=== PATIENT | male | born 1985 | race Hispanic/Latino ===

== ENCOUNTER → 2017-03-17 | Day surgery (SDC) | payer BC ==
[~2017-03-17] MED LIST: FENTANYL CITRATE/PF 100MCG/2 ML INJ ONE; LIDOCAINE HCL 2% LOCAL INJ 5 ML SDV VIAL INJ ONE; MIDAZOLAM HCL 2 MG/2 ML VIAL ONE; PROPOFOL IV EMULSION 10 MG/ML 50 ML VIAL ONE; SINGULAIR10 MG PO; XYZAL5 MG PO
--- NOTE | 2017-03-17 11:02 | Operative Report ---
DATE OF PROCEDURE: March 17, 2017 REFERRING PHYSICIAN: Dr. Osiris Rivera PROCEDURES PERFORMED 1. Esophagogastroduodenoscopy with biopsies. 2. Colonoscopy with biopsies. INDICATIONS FOR EGD: Heartburn, indigestion, nausea and vomiting. INDICATIONS FOR COLONOSCOPY: Lower abdominal pain. History of bright red blood per rectum. MEDICATION: Patient was done under MAC. Please see anesthesiologist's note. PROCEDURE: With the patient in the left lateral decubitus position, the flexible fiberoptic Olympus gastroscope was introduced into the esophagus under direct visualization without any difficulty. There was some patchy erythema noted in the distal esophagus. The scope was then advanced with ease into the stomach, and the mucosa overlying the antrum and the body revealed some diffuse erythema and low-grade to moderate edema, and biopsies were obtained and sent to stain for H. pylori. There were some nodules up to 4 mm in size noted in the antrum, and biopsies were obtained. The pylorus was of normal contour and shape. It was intubated with ease, and the scope was advanced all the way to the 2nd portion of the duodenum. The scope was then withdrawn slowly. Mucosa overlying the proximal 2nd portion and the duodenal bulb appeared to be within normal limits. The scope was then withdrawn back into the stomach and retroflexed. The mucosa overlying the fundus and the cardia grossly appeared to be within normal limits. The scope was then straightened out. The stomach was decompressed. The scope was subsequently withdrawn. Patient tolerated the procedure well. IMPRESSION 1. Distal esophagitis, mild. 2. Gastritis, biopsied. Biopsies sent to stain for H. pylori. 3. Antral nodules up to 4 mm in size, biopsies obtained. PLAN: Follow up histology. Initiate Protonix 40 mg 1 p.o. q.a.m. a.c. The patient was then turned around. After adequate lubrication of the anal canal, a flexible fiberoptic Olympus colonoscope was inserted into the rectum with ease and advanced all the way to the cecum. The mucosa overlying the cecum appeared to be within normal limits. The ileocecal valve was intubated. Scope was advanced into the terminal ileum. Biopsies were obtained. The scope was then withdrawn back into the colon. It was then withdrawn slowly, and mucosa overlying the ascending and the transverse as well as the descending appeared to be within normal limits. There were some patchy areas of erythema and low-grade edema noted in the sigmoid and rectum, and biopsies were obtained. The scope was then retroflexed into the distal rectum, and moderate-size internal hemorrhoids were noted, none of which was actively bleeding. The scope was then straightened out. The rectosigmoid area as well as the distal rectal area were decompressed. Scope was subsequently withdrawn. Patient tolerated the procedure well. IMPRESSION 1. Mild patchy proctosigmoiditis. 2. Moderate-size internal hemorrhoids, none actively bleeding. PLAN: Follow up histology. Initiate high-fiber, low-fat diet. Initiate high-fiber supplement. Start Anusol-HC suppositories 1 b.i.d. times 10 days, then p.r.n. and Bentyl 10 mg 1 p.o. t.i.d. Job#: [id number] cc:OSIRIS RIVERA DO
== END | disposition home or self-care (01) ==
LOC: OR 06:33
PROVIDERS: ATTEND Internal Medicine Gastroenterology
DX: K29.50 Unspecified chronic gastritis without bleeding (principal); K20.9 Esophagitis, unspecified; K31.89 Other diseases of stomach and duodenum; K63.89 Other specified diseases of intestine; A04.8 Other specified bacterial intestinal infections; K64.8 Other hemorrhoids; Z68.29 Body mass index [BMI] 29.0-29.9, adult
CPT/HCPCS: 43239; 45380; J2001; J2250; 45378